=== PATIENT | female | born 1980 | race Caucasian/White ===

== ENCOUNTER 2016-05-22 07:02 | Day surgery (SDC) | payer OTHER ==
[~2016-05-22] VITALS: Ht 167.6 cm; Wt 85.7 kg
[2016-05-22] MEDS ORDERED: PROPOFOL 200 MG/20 ML VIAL IV ONE (13:30)
[2016-05-22] MEDS ORDERED: SEVOFLURANE 250 ML BTL INH ONE (13:30)
[2016-05-22] MEDS ORDERED: MIDAZOLAM 2 MG/2 ML VIAL ONE (13:33)
[2016-05-22] MEDS ORDERED: fentaNYL 0.05 MG/ML VIAL ONE (13:33)
[2016-05-22] MEDS ORDERED: MORPHINE SULFATE 4 MG/ML SYR ONE ×4 (13:33→15:15)
[2016-05-22] MEDS ORDERED: OXYTOCIN 10 UNITS/ML VIAL ONE (13:44)
[2016-05-22] MEDS ORDERED: METOCLOPRAMIDE 10 MG/2 ML INJ VIAL IVP PRN ×2 (13:45)
[2016-05-22] MEDS ORDERED: MIDAZOLAM 2 MG/2 ML VIAL IV ONE ×2 (13:45)
[2016-05-22] MEDS ORDERED: MORPHINE SULFATE 4 MG/ML SYR IVP PRN ×3 (13:45)
[2016-05-22] MEDS ORDERED: MORPHINE SULFATE 2 MG/ML SYR IVP PRN ×3 (13:45→14:55)
[2016-05-22] MEDS: MORPHINE SULFATE 4 MG/ML SYR IVP PRN ×2 (14:40→14:55)
[2016-05-22] MEDS ORDERED: oxyCODONE/APAP 5/325 MG 1 TAB TAB PO PRN (14:55)
== END 2016-05-22 20:40 | disposition home or self-care (01) ==
LOC: MDS 07:02 → MFCC 07:49 → MDS 20:40
PROVIDERS: ATTEND Obstetrics & Gynecology
DX: O02.1 Missed abortion (principal); O23.41 Unspecified infection of urinary tract in pregnancy, first trimester; Z3A.11 11 weeks gestation of pregnancy; M79.7 Fibromyalgia
CPT/HCPCS: 36415; 59820; 76801; 80048; 85025; 86900; 86901; J2250; J2270; J2590; J2704; J3010; J7120; Q0092

== ENCOUNTER 2016-06-26 07:03 | Day surgery (SDC) | payer OTHER ==
[~2016-06-26] VITALS: Ht 165.1 cm; Wt 82.7 kg
[2016-06-26] MEDS ORDERED: PROPOFOL 200 MG/20 ML VIAL IV ONE (11:26)
[2016-06-26] MEDS ORDERED: SEVOFLURANE 250 ML BTL INH ONE (11:26)
[2016-06-26] MEDS ORDERED: ceFAZolin 1,000 MG VIAL IV ONE (11:26)
[2016-06-26] MEDS ORDERED: LIDOCAINE 2% 100 MG/5 ML SYR IVP ONE (11:26)
[2016-06-26] MEDS ORDERED: MIDAZOLAM 2 MG/2 ML VIAL ONE (11:33)
[2016-06-26] MEDS ORDERED: ONDANSETRON 4 MG/2 ML VIAL IVP PRN ×2 (11:45→20:55)
[2016-06-26] MEDS ORDERED: HYDROmorphone 1 MG/ML AMP IVP PRN ×2 (11:45→13:15)
[2016-06-26] MEDS ORDERED: OXYTOCIN 10 UNITS/ML VIAL ONE (11:47)
[2016-06-26] MEDS ORDERED: METHYLERGONOVINE 0.2 MG/ML AMP ONE (12:06)
[2016-06-26] MEDS ORDERED: IBUPROFEN 600 MG TAB PO PRN (12:30)
[2016-06-26] MEDS: HYDROmorphone PFS 2 MG/ML SYR ONE ×6 (12:30→13:25)
[2016-06-26] MEDS ORDERED: ONDANSETRON 4 MG/2 ML VIAL ONE ×2 (12:36→21:17)
[2016-06-26 14:00] VITALS: BP 103/56
[2016-06-26] MEDS: MORPHINE SULFATE 2 MG/ML SYR IVP PRN ×2 (14:49→19:58)
--- NOTE | 2016-06-26 17:50 | NUR ---
CONTACTED DR. TA REGARDING PT PAIN LEVEL, LOW BP AND SMALL AMOUNT OF BLOOD NOTED ON ARELI PAD. PER DR. TA HE WILL BE IN TO SEE PT.
--- NOTE | 2016-06-26 18:00 | NUR ---
INFORMED PT THAT . WILL BE IN TO SEE HER. PT VERBALIZED UNDERSTANDING. CALL LIGHT WITHIN REACH WILL CONTINUE TO MONITOR.
--- NOTE | 2016-06-26 18:10 | NUR ---
PT C/O OF ABDOMINAL PAIN, BP 90/60 HR 73, INFORMED PT THAT BP IS TO LOW TO ADMINISTER MORPHINE AT THE TIME. PT VERBALIZED UNDERSTANDING, WARM COMPRESS PROVIDED PT STATES SOME PAIN RELIEF, CALL LIGHT WITHIN REACH. WILL CONTINUE TO MONITOR.
--- NOTE | 2016-06-26 19:15 | NUR ---
DR. TA IN TO SEE PT. PER DR. TA HE WILL BE BACK BEFORE 2100 TO CHECK PELVIC US RESULTS.
--- NOTE | 2016-06-26 19:30 | NUR ---
ENDORSED PLAN OF CARE TO CHARGE NURSE.
[2016-06-26] MEDS: LACTATED RINGERS 1,000 ML IV SCH ×2 (20:00→20:26)
[2016-06-26 20:35] VITALS: BP 117/67
--- NOTE | 2016-06-26 20:35 | NUR ---
PT IS CURRENTLY RESTING IN BED AWAKE ALERT ORIENTED VERY NAUSEATED AND IN PAIN CRYING PT STATES SHE FEELS VERY DIZZY PT DENIES ANY CHEST PAIN OR SOB.IVF INFUSING WELL IV SITE PATENT NO INFILTRATION NOTED.I GAVE HER A EMESIS BAG AND TWO MORE TO KEEP AT THE BEDSIDE.PELVIC ULTRASOUND CURRENTLY BEING DONE AT BEDSIDE.PT HAS MINIMAL VAGINAL BLEEDING NOTED TO HER PERIPAD PT IS WEARING YELLOW SAFETY AND FALL PRECAUTIONS SOCKS. AT BEDSIDE WITH THE PATIENT.I CHECKED HER VITALS SIGNS THEY ARE CURRENTLY WNL AND PT IS AFEBRILE.
--- NOTE | 2016-06-26 20:37 | NUR ---
PELVIC ULTRASOUND WAS JUST DONE ON THE PATIENT WILL AWAIT FOR RESULTS.
--- NOTE | 2016-06-26 20:40 | NUR ---
Patient's Plan of Care was discussed and reviewed with [employer]TITUDE TEST GRADER: JANIE Schaffer
--- NOTE | 2016-06-26 20:40 | NUR ---
PT COMPLAINS OF FEELING VERY NAUSEOUS EMESIS BAG GIVEN TO THE PATIENT.PT HAS NO ANTIEMETIC ORDERED SO MD TA HAS BEEN PAGED.
--- NOTE | 2016-06-26 20:45 | NUR ---
MD TA DIDN'T RETURN CALL BUT HE IS HERE AND SPOKE WITH THE PATIENT.MD TA GAVE NEW ORDERS.WILL CARRY THEM OUT.
--- NOTE | 2016-06-26 21:00 | NUR ---
PATIENT STATES SHE NEEDS TO GO THE BATHROOM BUT SHE FEELS VERY DIZZY,MD TA CAME BACK TO TELL THE PATIENT ABOUT THE PELVIC ULTRASOUND RESULTS AND GAVE AN ORDER TO INSERT FONSECA CATHETER AND SAID TO NOT LET THE PATIENT GET OUT OF BED FOR NOW I ASKED MD IF BEDPAIN IS OK INSTEAD OF FONSECA CATHETER MD TA SAID,"NO," JUST INSERT FONSECA CATHETER.PATIENT IS AWARE THAT MD ORDERED A FONSECA CATHETER AND AGREES TO HAVE ONE PUT IN.MD TA ALSO EXPLAINED TO THE PATIENT THAT SHE WILL STAY FOR TONIGHT AND IN THE MORNING SHE WILL HAVE LAB DRAWN.PT VERBALIZES UNDERSTANDING.CALL LIGHT WITHIN REACH.
--- NOTE | 2016-06-26 21:05 | NUR ---
PT AGREES TO HAVE FONSECA CATHETER INSERTED.FONSECA FR#16 WAS INSERTED,PT TOLERATED PROCEDURE WELL AND FONSECA TUBING WAS SECURED WELL TO PATIENTS LEG AND IS CURRENTLY DRAINING TO GRAVITY YELLOW COLOR URINE.PT WAS ASSISTED TO PUT ON A MESH UNDERWEAR AND SHE WAS ALSO GIVEN A CLEAN PERIPAD AND ARELI PADS SO SHE CAN CHANGE.UNDERNEATH [employer] OR PAD WAS CHANGED AND I CHANGED HER GOWN ALSO.CALL LIGHT WITHIN REACH.
--- NOTE | 2016-06-26 21:22 | NUR ---
PHARMACY HAS VERIFIED THE MEDICATIONS AND CAMP DIRECTOR NURSE TACO ADMINISTERED THE ZOFRAN IV ANTIEMETIC WILL CONTINUE TO MONITOR THE PATIENT.
[2016-06-26] MEDS: HYDROcodone/APAP 10/325 MG 1 TAB TAB PO PRN (21:46)
--- NOTE | 2016-06-26 22:06 | NUR ---
RICKY CALLED AND CALL WAS TRANSFERRED TO THE PATIENT.
--- NOTE | 2016-06-26 23:06 | NUR ---
PT KEEPS ASKING ME TO GIVE HER MILK AND ICE CHIPS AND SHE THREATENS TO REMOVE HER NGTUBE AND LEAVE IF SHE IS NOT GIVEN WHAT SHE WANTS.PT STATES,"I DON'T WANT YOU TO TAKE CARE OF ME, I NEED A REAL NURSE THAT CAN ADMINISTER IV MEDS AND YOU CANNOT DO THAT PLEASE ERASE YOUR NAME FROM THE BOARD AND CLOSE THE DOOR BEHIND YOU, YOU ARE NOT TOUCHING ME ANYMORE." I DIDN'T TELL THE PATIENT ANYTHING DON'T WANT TO MAKE THE PATIENT MORE UPSET ACOUSTICAL TILE PATTERNMAKER NURSE IS AWARE THAT PATIENT IS REFUSING FOR ME TO TAKE CARE OF HER AND DOESN'T WANT ME BACK IN THE ROOM. Addendum: 06/27/16 at 0228 by Michelle Michele LVN WRONG ENTRY MISTAKEN ENTRY WRONG PATIENT.
[2016-06-27 00:33] VITALS: BP 91/52
--- NOTE | 2016-06-27 02:35 | NUR ---
PT IS SLEEPING QUIETLY IN BED,CALL TRANSFEREDED TO THE .
[2016-06-27] MEDS: MORPHINE SULFATE 2 MG/ML SYR IVP PRN (02:39)
[2016-06-27 04:00] VITALS: BP 98/52
--- NOTE | 2016-06-27 04:15 | NUR ---
PT IS CURRENTLY RESTING IN BED IN NO DISTRESS IVF INFUSING WELL,IV SITE PATENT.WILL CONTINUE TO MONITOR.CALL LIGHT WITHIN REACH.
[2016-06-27] MEDS: LACTATED RINGERS 1,000 ML IV SCH ×2 (04:26→04:52)
--- NOTE | 2016-06-27 06:10 | NUR ---
PT IS CURRENTLY RESTING IN BED NO MORE EPISODE OF N/V DURING THE NIGHT.MINIMAL AMOUNT OF VAGINAL BLEEDING NOTED AT THIS TIME.PT STABLE IVF INFUSING WELL IV SITE PATENT WILL CONTINUE TO MONITOR.
--- NOTE | 2016-06-27 07:30 | NUR ---
RECEIVED PT RESTING COMFORTABLY IN BED AT THIS TIME, AAOX4 ABLE TO VERBALIZE NEEDS; PT DENIES ANY VAGINAL BLEEDING AT THIS TIME, NO COMPLAINTS OF PAIN OR S/S ACUTE DISTRESS. ROUTINE/PLAN OF CARE DISCUSSED AND REVIEWED, PT VERBALIZES UNDERSTANDING AND COMPLIANCE. FONSECA CATH PATENT AND DRAINING BY GRAVITY, CLEAR YELLOW URINE. IVF INFUSING WELL TO RIGHT HAND, SITE ASYMPTOMATIC. SAFETY PRECAUTIONS OBSERVED AND MAINTAINED, CALL LIGHT IN REACH.
--- NOTE | 2016-06-27 07:37 | NUR ---
PT STABLE REPORT ENDORSED AT BEDSIDE TO SUJATA JIMENEZ.
[2016-06-27 08:00] VITALS: BP 109/72
[2016-06-27] MEDS: HYDROcodone/APAP 10/325 MG 1 TAB TAB PO PRN (08:14)
--- NOTE | 2016-06-27 08:15 | NUR ---
VSS. ADMINISTERED NORCO PO FOR C/O ABD PAIN, SEE PAIN ASSESSMENT. NARCOTIC EDUCATION GIVEN.
--- NOTE | 2016-06-27 13:15 | NUR ---
PT SEEN AND ASSESSED BY DR TA AT BEDSIDE, DC ORDERS ACKNOWLEDGED AND CARRIED OUT.
--- NOTE | 2016-06-27 13:30 | NUR ---
DISCHARGE INSTRUCTIONS AND EDUCATION GIVEN; QUESTIONS AND CONCERNS ADDRESSED, PT VERBALIZES UNDERSTANDING AND SIGNS ALL FORMS. DC IV WITH CANNULA INTACT, SITE DRESSED WITH GAUZE AND TAPE. Addendum: 06/27/16 at 1356 by Claire Zhang RN ERROR: INCORRECT PT.
[2016-06-27] MEDS ORDERED: ZITHROMAX250 MG PO (13:43)
[2016-06-27] MEDS ORDERED: FERROUS SULFAT325 MG PO (13:43)
[2016-06-27] MEDS ORDERED: METHERGINE PO (13:43)
[2016-06-27] MEDS ORDERED: MOTRIN400 MG PO (13:44)
--- NOTE | 2016-06-27 13:50 | NUR ---
DISCHARGED PT HOME AT THIS TIME IN STABLE CONDITION. Addendum: 06/27/16 at 1356 by Claire Zhang RN ERROR: INCORRECT PT.
--- NOTE | 2016-06-27 14:50 | NUR ---
DISCHARGE Rx, INSTRUCTIONS AND EDUCATION GIVEN; QUESTIONS AND CONCERNS ADDRESSED, PT VERBALIZES UNDERSTANDING AND SIGNS ALL FORMS. DC IV WITH CANNULA INTACT, SITE DRESSED WITH GAUZE AND TAPE.
--- NOTE | 2016-06-27 14:58 | NUR ---
DC PT HOME AT THIS TIME IN STABLE CONDITION.
== END 2016-06-27 15:00 | disposition home or self-care (01) ==
LOC: MDS 07:03 → MMU 07:14 → MTU 14:30 → MDS 06-27 15:00
PROVIDERS: ATTEND Obstetrics & Gynecology
DX: O02.1 Missed abortion (principal); N71.9 Inflammatory disease of uterus, unspecified; E66.3 Overweight; J45.909 Unspecified asthma, uncomplicated; I12.9 Hypertensive chronic kidney disease with stage 1 through stage 4 chronic kidney disease, or unspecified chronic kidney disease; E11.22 Type 2 diabetes mellitus with diabetic chronic kidney disease; N18.9 Chronic kidney disease, unspecified; D64.9 Anemia, unspecified; F03.90 Unspecified dementia, unspecified severity, without behavioral disturbance, psychotic disturbance, mood disturbance, and anxiety; G40.909 Epilepsy, unspecified, not intractable, without status epilepticus
CPT/HCPCS: 36415; 59820; 76801; 76856; 80053; 81001; 84702; 85025; 85610; 85730; 87081; 87086; J0690; J1170; J2001; J2210; J2250; J2270; J2405; J2590; J2704; J7120; Q0092